=== PATIENT | male | born 1970 | race Caucasian/White ===

== ENCOUNTER 2019-01-13 00:50 | Emergency (ER) | payer SELFPAY ==
[~2019-01-13] VITALS: Ht 162.6 cm; Wt 70.5 kg
[2019-01-13 01:15] VITALS: BP 124/73
[2019-01-13] MEDS ORDERED: IBUPROFEN 600 MG TABLET PO ONE (01:30)
[2019-01-13] MEDS ORDERED: HYDROCODONE/ACETAMINOPHEN 5-325 MG TABLET PO ONE (01:30)
== END 2019-01-13 01:35 | disposition home or self-care (01) ==
LOC: EMS 00:57
DX: K02.9 Dental caries, unspecified (principal); Z88.0 Allergy status to penicillin

== ENCOUNTER 2019-04-22 13:17 | Inpatient (IN) | payer MEDICAID ==
[~2019-04-22] VITALS: Ht 160 cm; Wt 56.8 kg
[2019-04-22] MEDS ORDERED: SODIUM CHLORIDE 0.9% 1,000 ML IV ONE (15:15)
[2019-04-22 16:01] LABS: HEMATOCRIT 35.9 % (41-53); HEMOGLOBIN 12.5 g/dL (13.5-17.5); MEAN CORPUSCULAR HGB CONC 34.8 G/dL (31.0-37.0); MEAN CORPUSCULAR VOLUME 95 fL (80-100); PLATELET COUNT (AUTO) 193 K/uL (150-450); RED BLOOD CELL COUNT(AUTO) 3.79 MIL/uL (4.50-5.90); RED CELL DISTRIBUTION WIDTH 15.4 % (11.5-14.5)
[2019-04-22 16:23] LABS: ANION GAP 10 mmol/L (8-16); CALCIUM, TOTAL 9.8 mg/dL (8.8-10.5); CARBON DIOXIDE 33 mmol/L (22-29); CHLORIDE 84 mmol/L (98-107); CREATININE 1.03 mg/dL (0.60-1.30); GLOMERULAR FILTR. RATE CALC > 60 mL/min (>60); GLUCOSE,RANDOM 134 mg/dL (70-110); SODIUM SERUM 127 mmol/L (136-145); UREA NITROGEN, BLOOD 12 mg/dL (7-18)
[2019-04-22 16:30] LABS: POTASSIUM 2.1 mmol/L (3.5-5.1)
[2019-04-22 16:32] LABS: ALANINE AMINOTRANSFERASE 37 U/L (12-78); ALKALINE PHOSPHATASE 162 U/L (46-116); ASPARTATE AMINOTRANSFERASE 70 U/L (15-37)
[2019-04-22 16:33] LABS: ALBUMIN 3.4 g/dL (3.4-5.0); TOTAL PROTEIN, SERUM 8.1 g/dL (6.4-8.2)
[2019-04-22] MEDS ORDERED: POTASSIUM CHLORIDE 20 MEQ ER TABLET PO ONE (17:15)
[2019-04-22] MEDS ORDERED: ChlordiazePOXIDE HCL 25 MG CAPSULE PO ONE (17:30)
[2019-04-22 17:38] LABS: BAND NEUTROPHILS % (MANUAL) 4 % (0-5); EOSINOPHILS % (MANUAL) 1 % (1-6); LYMPHOCYTES % (MANUAL) 20 % (22-44); MONOCYTES % (MANUAL) 19 % (2-9); REACTIVE LYMPHOCYTES 1 % (0-0); SEGMENTED NEUTROPHILS % 55 % (40-70)
[2019-04-22] MEDS: POTASSIUM CHL 10 MEQ/WATER 50 ML IV SCH ×2 (19:20→20:30)
[2019-04-22] MEDS ORDERED: MAGNESIUM OXIDE 400 MG TABLET PO ONE (19:30)
[2019-04-22 21:02] LABS: ANION GAP 9 mmol/L (8-16); CALCIUM, TOTAL 8.5 mg/dL (8.8-10.5); CARBON DIOXIDE 30 mmol/L (22-29); CHLORIDE 92 mmol/L (98-107); CREATININE 0.79 mg/dL (0.60-1.30); GLOMERULAR FILTR. RATE CALC > 60 mL/min (>60); GLUCOSE,RANDOM 122 mg/dL (70-110); SODIUM SERUM 131 mmol/L (136-145); UREA NITROGEN, BLOOD 10 mg/dL (7-18)
[2019-04-22 21:05] LABS: POTASSIUM 2.3 mmol/L (3.5-5.1)
[2019-04-22] MEDS ORDERED: MAGNESIUM SULFATE 1 GM in DEXTROSE 5%-WATER 50 ML IV ONE (21:30)
[2019-04-22] MEDS ORDERED: 0.9% SODIUM CHLORIDE 10 ML SYRINGE IVP PRN (21:45)
[2019-04-22] MEDS ORDERED: ACETAMINOPHEN 325 MG TABLET PO PRN (21:45)
[2019-04-23] MEDS: POTASSIUM CHL 10 MEQ/WATER 50 ML IV PRN ×5 (00:54→03:45)
[2019-04-23] MEDS ORDERED: 0.9% SODIUM CHLORIDE 10 ML SYRINGE IVP PRN (04:00)
[2019-04-23] MEDS ORDERED: POTASSIUM CHL 10 MEQ/WATER 50 ML IV PRN (04:00)
[2019-04-23] MEDS ORDERED: ONDANSETRON HCL 4 MG/2 ML VIAL IVP PRN (04:00)
[2019-04-23] MEDS ORDERED: ChlordiazePOXIDE HCL 25 MG CAPSULE PO PRN (04:00)
[2019-04-23] MEDS ORDERED: OxyCODONE HCL/ACETAMINOPHEN 5-325 MG TABLET PO PRN ×2 (04:00)
[2019-04-23 06:52] LABS: BASOPHILS % (AUTO) 0.7 % (0.0-2.0); EOSINOPHILS % (AUTO) 1.3 % (1.0-6.0); HEMATOCRIT 29.6 % (41-53); HEMOGLOBIN 10.5 g/dL (13.5-17.5); LYMPHOCYTES # (AUTO) 1.2 K/uL (1.0-4.8); LYMPHOCYTES % (AUTO) 20.3 % (22.0-44.0); MEAN CORPUSCULAR HEMOGLOBIN 34.1 pg (26.0-34.0); MEAN CORPUSCULAR HGB CONC 35.4 G/dL (31.0-37.0); MEAN CORPUSCULAR VOLUME 96 fL (80-100); MONOCYTES % (AUTO) 16.3 % (2.0-9.0); NEUTROPHILS # (AUTO) 3.6 K/uL (1.8-7.7); NEUTROPHILS % (AUTO) 61.4 % (40.0-70.0); PLATELET COUNT (AUTO) 136 K/uL (150-450); RED BLOOD CELL COUNT(AUTO) 3.08 MIL/uL (4.50-5.90); RED CELL DISTRIBUTION WIDTH 15.4 % (11.5-14.5)
[2019-04-23 07:04] LABS: ANION GAP 7 mmol/L (8-16); CALCIUM, TOTAL 8.2 mg/dL (8.8-10.5); CARBON DIOXIDE 27 mmol/L (22-29); CHLORIDE 99 mmol/L (98-107); CREATININE 0.63 mg/dL (0.60-1.30); GLOMERULAR FILTR. RATE CALC > 60 mL/min (>60); GLUCOSE,RANDOM 100 mg/dL (70-110); SODIUM SERUM 133 mmol/L (136-145); UREA NITROGEN, BLOOD 8 mg/dL (7-18)
[2019-04-23 07:06] LABS: POTASSIUM 2.9 mmol/L (3.5-5.1)
[2019-04-23] MEDS: DOCUSATE SODIUM 100 MG CAPSULE PO SCH ×2 (08:44→20:20)
[2019-04-23 11:00] VITALS: BP 105/61
[2019-04-23 11:26] VITALS: BP 105/61
[2019-04-23] MEDS ORDERED: INFLUENZA VIRUS VACCINE QVS 2019-20 (3YR+)/PF 60 MCG/0.5 ML SYRINGE IM ONE (14:45)
[2019-04-23] MEDS: HydrOXYzine HCL 25 MG TABLET PO PRN ×2 (14:50→22:05)
[2019-04-23] MEDS: POTASSIUM CHLORIDE 20 MEQ ER TABLET PO PRN ×2 (14:50→21:39)
[2019-04-23] MEDS: NICOTINE 21 MG/24 HOUR PATCH TD SCH (14:51)
[2019-04-23 16:00] VITALS: BP 113/72
[2019-04-23 20:20] VITALS: BP 122/75
[2019-04-23 23:29] VITALS: BP 110/71
[2019-04-23] MEDS: ACETAMINOPHEN 325 MG TABLET PO PRN (23:53)
[2019-04-24] MEDS: POTASSIUM CHLORIDE 20 MEQ ER TABLET PO PRN (02:32)
[2019-04-24 04:33] VITALS: BP 100/61
[2019-04-24 06:03] VITALS: BP 100/61
[2019-04-24 06:37] LABS: BASOPHILS % (AUTO) 0.9 % (0.0-2.0); EOSINOPHILS % (AUTO) 1.9 % (1.0-6.0); HEMATOCRIT 31.9 % (41-53); LYMPHOCYTES # (AUTO) 1.5 K/uL (1.0-4.8); LYMPHOCYTES % (AUTO) 26.8 % (22.0-44.0); MEAN CORPUSCULAR HEMOGLOBIN 33.3 pg (26.0-34.0); MEAN CORPUSCULAR HGB CONC 34.4 G/dL (31.0-37.0); MEAN CORPUSCULAR VOLUME 97 fL (80-100); MONOCYTES # (AUTO) 0.8 K/uL (0.1-1.0); MONOCYTES % (AUTO) 14.2 % (2.0-9.0); NEUTROPHILS # (AUTO) 3.1 K/uL (1.8-7.7); NEUTROPHILS % (AUTO) 56.2 % (40.0-70.0); PLATELET COUNT (AUTO) 148 K/uL (150-450); RED BLOOD CELL COUNT(AUTO) 3.29 MIL/uL (4.50-5.90); RED CELL DISTRIBUTION WIDTH 15.6 % (11.5-14.5)
[2019-04-24 06:40] LABS: ANION GAP 7 mmol/L (8-16); CALCIUM, TOTAL 9.1 mg/dL (8.8-10.5); CARBON DIOXIDE 26 mmol/L (22-29); CHLORIDE 102 mmol/L (98-107); CREATININE 0.66 mg/dL (0.60-1.30); GLOMERULAR FILTR. RATE CALC > 60 mL/min (>60); GLUCOSE,RANDOM 121 mg/dL (70-110); POTASSIUM 3.7 mmol/L (3.5-5.1); SODIUM SERUM 135 mmol/L (136-145); UREA NITROGEN, BLOOD 10 mg/dL (7-18)
[2019-04-24] MEDS ORDERED: ChlordiazePOXIDE HCL 25 MG CAPSULE PO PRN (07:00)
[2019-04-24 07:09] VITALS: BP 107/72
[2019-04-24] MEDS: DOCUSATE SODIUM 100 MG CAPSULE PO SCH ×2 (08:26→20:34)
[2019-04-24] MEDS: ChlordiazePOXIDE HCL 25 MG CAPSULE PO SCH ×4 (08:26→21:02)
[2019-04-24] MEDS: NICOTINE 21 MG/24 HOUR PATCH TD SCH (08:28)
[2019-04-24] MEDS: HydrOXYzine HCL 25 MG TABLET PO PRN (08:32)
[2019-04-24] MEDS: ACETAMINOPHEN 325 MG TABLET PO PRN (08:32)
[2019-04-24 11:12] VITALS: BP 120/78
[2019-04-24] MEDS ORDERED: LORazepam 2 MG/ML VIAL IVP PRN (11:30)
[2019-04-24] MEDS ORDERED: DiphenhydrAMINE HCL 25 MG CAPSULE PO PRN (11:30)
[2019-04-24] MEDS ORDERED: PIPERONYL BUTOXIDE/PYRETHRINS 120 ML SHAMPOO TP ONE (16:00)
[2019-04-24 16:22] VITALS: BP 124/86
[2019-04-24 20:40] VITALS: BP 123/83
[2019-04-25] VITALS (9 sets, daily range): BP systolic 99–137; BP diastolic 71–86
[2019-04-25 07:00] LABS: BASOPHILS % (AUTO) 0.8 % (0.0-2.0); EOSINOPHILS % (AUTO) 1.7 % (1.0-6.0); HEMOGLOBIN 11.2 g/dL (13.5-17.5); LYMPHOCYTES # (AUTO) 1.5 K/uL (1.0-4.8); LYMPHOCYTES % (AUTO) 23.2 % (22.0-44.0); MEAN CORPUSCULAR HEMOGLOBIN 33.3 pg (26.0-34.0); MEAN CORPUSCULAR HGB CONC 33.9 G/dL (31.0-37.0); MEAN CORPUSCULAR VOLUME 98 fL (80-100); MONOCYTES # (AUTO) 0.8 K/uL (0.1-1.0); MONOCYTES % (AUTO) 11.6 % (2.0-9.0); NEUTROPHILS # (AUTO) 4.1 K/uL (1.8-7.7); NEUTROPHILS % (AUTO) 62.7 % (40.0-70.0); PLATELET COUNT (AUTO) 159 K/uL (150-450); RED BLOOD CELL COUNT(AUTO) 3.36 MIL/uL (4.50-5.90); RED CELL DISTRIBUTION WIDTH 15.6 % (11.5-14.5)
[2019-04-25 07:35] LABS: ANION GAP 10 mmol/L (8-16); CALCIUM, TOTAL 9.6 mg/dL (8.8-10.5); CARBON DIOXIDE 24 mmol/L (22-29); CHLORIDE 102 mmol/L (98-107); CREATININE 0.63 mg/dL (0.60-1.30); GLOMERULAR FILTR. RATE CALC > 60 mL/min (>60); GLUCOSE,RANDOM 104 mg/dL (70-110); POTASSIUM 3.9 mmol/L (3.5-5.1); SODIUM SERUM 136 mmol/L (136-145); UREA NITROGEN, BLOOD 10 mg/dL (7-18)
[2019-04-25] MEDS: THIAMINE HCL 100 MG TABLET PO SCH (08:33)
[2019-04-25] MEDS: FOLIC ACID 1 MG TABLET PO SCH (08:34)
[2019-04-25] MEDS: NICOTINE 21 MG/24 HOUR PATCH TD SCH (08:34)
[2019-04-25] MEDS: DOCUSATE SODIUM 100 MG CAPSULE PO SCH ×2 (08:34→21:17)
[2019-04-25] MEDS: MULTIVITAMINS WITH MINERALS, THERAPEUTIC TABLET PO SCH (08:34)
[2019-04-25] MEDS: PANTOPRAZOLE SODIUM 40 MG DR TABLET PO SCH (08:34)
[2019-04-25] MEDS: ChlordiazePOXIDE HCL 25 MG CAPSULE PO SCH ×4 (08:34→21:17)
[2019-04-25] MEDS: HydrOXYzine HCL 25 MG TABLET PO PRN ×2 (08:46→16:53)
[2019-04-25] MEDS: ACETAMINOPHEN 325 MG TABLET PO PRN (08:46)
[2019-04-25] MEDS ORDERED: MAGNESIUM SULFATE 4 GM/WATER 100 ML IV ONE (13:15)
[2019-04-25] MEDS ORDERED: SODIUM CHLORIDE 0.9% 250 ML IV ONE (14:13)
[2019-04-26 00:01] VITALS: BP 98/62
[2019-04-26 05:16] VITALS: BP 111/64
[2019-04-26 05:49] VITALS: BP 111/64
[2019-04-26 06:44] LABS: BASOPHILS % (AUTO) 0.9 % (0.0-2.0); EOSINOPHILS % (AUTO) 1.8 % (1.0-6.0); HEMATOCRIT 33.8 % (41-53); HEMOGLOBIN 11.4 g/dL (13.5-17.5); LYMPHOCYTES # (AUTO) 1.2 K/uL (1.0-4.8); LYMPHOCYTES % (AUTO) 17.3 % (22.0-44.0); MEAN CORPUSCULAR HEMOGLOBIN 33.3 pg (26.0-34.0); MEAN CORPUSCULAR HGB CONC 33.8 G/dL (31.0-37.0); MEAN CORPUSCULAR VOLUME 99 fL (80-100); MONOCYTES # (AUTO) 0.7 K/uL (0.1-1.0); MONOCYTES % (AUTO) 9.9 % (2.0-9.0); NEUTROPHILS # (AUTO) 4.9 K/uL (1.8-7.7); NEUTROPHILS % (AUTO) 70.1 % (40.0-70.0); PLATELET COUNT (AUTO) 159 K/uL (150-450); RED BLOOD CELL COUNT(AUTO) 3.43 MIL/uL (4.50-5.90); RED CELL DISTRIBUTION WIDTH 15.9 % (11.5-14.5)
[2019-04-26] MEDS ORDERED: ChlordiazePOXIDE HCL 10 MG CAPSULE PO PRN (07:00)
[2019-04-26 07:03] LABS: ANION GAP 9 mmol/L (8-16); CALCIUM, TOTAL 8.7 mg/dL (8.8-10.5); CARBON DIOXIDE 23 mmol/L (22-29); CHLORIDE 104 mmol/L (98-107); GLOMERULAR FILTR. RATE CALC > 60 mL/min (>60); GLUCOSE,RANDOM 105 mg/dL (70-110); SODIUM SERUM 136 mmol/L (136-145); UREA NITROGEN, BLOOD 12 mg/dL (7-18)
[2019-04-26] MEDS: THIAMINE HCL 100 MG TABLET PO SCH (08:34)
[2019-04-26] MEDS: ChlordiazePOXIDE HCL 10 MG CAPSULE PO SCH ×4 (08:34→20:52)
[2019-04-26] MEDS: FOLIC ACID 1 MG TABLET PO SCH (08:34)
[2019-04-26] MEDS: PANTOPRAZOLE SODIUM 40 MG DR TABLET PO SCH (08:34)
[2019-04-26] MEDS: DOCUSATE SODIUM 100 MG CAPSULE PO SCH ×2 (08:34→21:00)
[2019-04-26] MEDS: ACETAMINOPHEN 325 MG TABLET PO PRN ×2 (08:34→20:52)
[2019-04-26] MEDS: MULTIVITAMINS WITH MINERALS, THERAPEUTIC TABLET PO SCH (08:34)
[2019-04-26] MEDS: NICOTINE 21 MG/24 HOUR PATCH TD SCH (08:35)
[2019-04-26 12:15] VITALS: BP 96/60
[2019-04-26] MEDS ORDERED: MAGNESIUM SULFATE 4 GM/WATER 100 ML IV ONE (13:45)
[2019-04-26 16:01] VITALS: BP 104/72
[2019-04-26 19:59] VITALS: BP 99/67
[2019-04-26] MEDS: HydrOXYzine HCL 25 MG TABLET PO PRN (21:07)
[2019-04-27 00:02] VITALS: BP 99/63
[2019-04-27 05:28] VITALS: BP 96/68
[2019-04-27] MEDS ORDERED: ChlordiazePOXIDE HCL 10 MG CAPSULE PO PRN (07:00)
[2019-04-27 08:00] VITALS: BP 104/67
[2019-04-27 09:40] LABS: BASOPHILS % (AUTO) 0.6 % (0.0-2.0); EOSINOPHILS % (AUTO) 1.6 % (1.0-6.0); HEMATOCRIT 38.8 % (41-53); HEMOGLOBIN 12.9 g/dL (13.5-17.5); LYMPHOCYTES # (AUTO) 1.1 K/uL (1.0-4.8); LYMPHOCYTES % (AUTO) 16.4 % (22.0-44.0); MEAN CORPUSCULAR HEMOGLOBIN 33.1 pg (26.0-34.0); MEAN CORPUSCULAR HGB CONC 33.3 G/dL (31.0-37.0); MEAN CORPUSCULAR VOLUME 100 fL (80-100); MONOCYTES # (AUTO) 0.7 K/uL (0.1-1.0); MONOCYTES % (AUTO) 9.9 % (2.0-9.0); NEUTROPHILS # (AUTO) 4.8 K/uL (1.8-7.7); NEUTROPHILS % (AUTO) 71.5 % (40.0-70.0); PLATELET COUNT (AUTO) 156 K/uL (150-450); RED CELL DISTRIBUTION WIDTH 16.5 % (11.5-14.5)
[2019-04-27 09:49] LABS: ANION GAP 9 mmol/L (8-16); CALCIUM, TOTAL 9.3 mg/dL (8.8-10.5); CARBON DIOXIDE 23 mmol/L (22-29); CHLORIDE 104 mmol/L (98-107); CREATININE 0.63 mg/dL (0.60-1.30); GLOMERULAR FILTR. RATE CALC > 60 mL/min (>60); GLUCOSE,RANDOM 86 mg/dL (70-110); POTASSIUM 4.5 mmol/L (3.5-5.1); SODIUM SERUM 136 mmol/L (136-145); UREA NITROGEN, BLOOD 13 mg/dL (7-18)
[2019-04-27] MEDS: NICOTINE 21 MG/24 HOUR PATCH TD SCH (11:07)
[2019-04-27] MEDS: DOCUSATE SODIUM 100 MG CAPSULE PO SCH (11:08)
[2019-04-27] MEDS: ACETAMINOPHEN 325 MG TABLET PO PRN (11:08)
[2019-04-27] MEDS: FOLIC ACID 1 MG TABLET PO SCH (11:08)
[2019-04-27] MEDS: THIAMINE HCL 100 MG TABLET PO SCH (11:08)
[2019-04-27] MEDS: MULTIVITAMINS WITH MINERALS, THERAPEUTIC TABLET PO SCH (11:08)
[2019-04-27] MEDS: PANTOPRAZOLE SODIUM 40 MG DR TABLET PO SCH (11:08)
[2019-04-27] MEDS ORDERED: MAGNESIUM OXIDE 400 MG TABLET PO ONE (12:00)
[2019-04-27 12:03] VITALS: BP 120/78
== END 2019-04-27 15:30 | disposition home or self-care (01) | DRG 897 ==
LOC: EMS 13:18 → 5S 04-23 10:05
PROVIDERS: ADMIT Internal Medicine; ATTEND Internal Medicine
DX: F10.239 Alcohol dependence with withdrawal, unspecified (principal); E87.1 Hypo-osmolality and hyponatremia; E87.6 Hypokalemia; E83.42 Hypomagnesemia; R73.9 Hyperglycemia, unspecified; Z88.0 Allergy status to penicillin; F41.9 Anxiety disorder, unspecified; Z23 Encounter for immunization; Z79.899 Other long term (current) drug therapy
CPT/HCPCS: 83735; 84132; 90686; 93005; 97116; 97161; 97165; 97535; G0480; J3475; J3480; J7030; J7050; J7060